=== PATIENT | male | born 1960 | race Caucasian/White ===

== ENCOUNTER 2022-06-10 14:37 | Outpatient (CLI) | payer MEDICARE, BC, SELFPAY ==
--- NOTE | 2022-06-10 15:00 | CRLHL7_ITS ---
For Patients: As a result of the Century Cures Act, medical imaging exams and procedure reports are released immediately into your electronic medical record. You may view this report before your referring provider. If you have questions, please contact your health care provider. INDICATION: POSTERIOR TO KNEE PAIN COMPARISON: None. TECHNIQUE: A compression venous ultrasound exam was performed of the left lower extremity using pedraza-scale imaging, color Doppler and spectral Doppler analysis. FINDINGS: Sonographic imaging of the left lower extremity demonstrates normal compressibility and color Doppler venous blood flow within the common femoral vein, deep femoral vein, and the proximal greater saphenous vein. Within the thigh, the femoral vein is patent and compressible. At a lower level, the popliteal and posterior tibial veins also show normal compressibility and color Doppler venous blood flow. Limited imaging of the contralateral groin demonstrates a normal spectral waveform and color Doppler venous blood flow within the right common femoral vein. IMPRESSION: Normal venous ultrasound exam. No evidence of deep vein thrombosis within the left lower extremity. Dictated by Trav Bah MD @ 06/11/2022 11:21:02 AM (Electronically Signed)
== END 2022-06-10 14:38 | disposition home or self-care (01) ==
PROVIDERS: PCP Family Medicine; Visit Provider Physician Assistant Medical
DX: M79.605 Pain in left leg (principal)
CPT/HCPCS: 93971

== ENCOUNTER 2023-03-22 08:58 | Outpatient (CLI) | payer MEDICARE, BC, SELFPAY | END 2023-03-22 08:59 | disposition home or self-care (01) | PROVIDERS: PCP Family Medicine; Visit Provider Family Medicine | DX: Z12.5 Encounter for screening for malignant neoplasm of prostate (principal); Z13.228 Encounter for screening for other metabolic disorders; Z13.6 Encounter for screening for cardiovascular disorders; E66.9 Obesity, unspecified; R40.0 Somnolence | CPT/HCPCS: 80048; 80061; 84153 ==

== ENCOUNTER 2023-06-08 19:14 | Outpatient (CLI) | payer MEDICARE, BC, SELFPAY ==
--- NOTE | 2023-07-07 13:25 | W.PM.SLEEP ---
Sleep Study Details Details Interpreting Provider: Matias Yan Date of Sleep Study: 06/08/23 Sleep Study Details: STUDY TYPE:? Home unattended ? BMI:? Not recorded ORDERING PROVIDER:? Jesus Manuel INDICATION:? Concerns about sleep apnea ? SLEEP SUMMARY:? 416 minute RESPIRATORY SUMMARY:? AHI 50, supine 91.1, right lateral 14.4, left lateral 38.8 Low oxygen 79 6.6% of study oxygen less than 90% Snoring 39% PERIODIC LIMB MOVEMENTS OF SLEEP:? Not recorded during home study CARDIAC:? Range 59-97, mean 73.2 IMPRESSION:? Severe obstructive sleep apnea with supine position dependency RECOMMENDATION: AutoSet CPAP pressure 4-18 with close follow-up.
== END 2023-06-08 19:15 | disposition home or self-care (01) ==
LOC: SLEEP 19:15
PROVIDERS: PCP Family Medicine; Visit Provider Family Medicine
DX: G47.33 Obstructive sleep apnea (adult) (pediatric) (principal)
CPT/HCPCS: 95806

== ENCOUNTER 2023-11-11 08:25 | Outpatient (CLI) | payer MEDICARE, BC, SELFPAY ==
--- NOTE | 2023-11-11 08:45 | MR_ITS ---
[facility] [address] [facility] [address] Phone:?[phone] Fax:?[phone] Referring Physician Information: Emery Cavazos [address] [facility] [address] Phone:?[phone] Fax:?[phone] Patient:Joyce Jalloh D.O.B:?1960 Sex:?Male Phone:?[phone] [facility] MRN:?[id number] Exam Date:?11/11/2023 EXAM: MRI of the RIGHT SHOULDER, without contrast CLINICAL: Right shoulder injury with history of prior surgery. Evaluate for rotator cuff tear. COMPARISONS: X-rays 11/09/2023. MRI 01/24/2014. TECHNICAL: Multiplanar multisequence MRI of the right shoulder was obtained. SEDATION: None. CONTRAST: None. FINDINGS: Rotator cuff: Supraspinatus/Infraspinatus: Postoperative changes of prior rotator cuff repair surgery. Appearance of the supraspinatus and infraspinatus tendons likely reflects a combination of tendinosis and postoperative changes with high-grade near full-thickness tearing seen to involve the distal supraspinatus and infraspinatus tendons. No evidence of significant tendon retraction at this time. Fatty lesion suggestive of a lipoma is now present along the anterior aspect of the infraspinatus muscle measuring up to 4.1 cm in craniocaudal dimension and 5.8 cm in transverse dimension, new compared to prior exam. No significant fatty atrophy of the muscle bellies. Teres minor: No tendinosis, tear or atrophy. Subscapularis: Appearance of the distal tendon likely reflecting a combination of tendinosis, postoperative changes and partial interstitial tearing. No evidence of full-thickness tendon tear. No significant fatty atrophy of the muscle belly. Bursae: Subacromial-subdeltoid: Mild bursal fluid. Subcoracoid: No significant bursal fluid. Coracoacromial arch: Acromion morphology: Type II. No os acromiale. Acromiohumeral space: Within normal limits. Coracohumeral space: Within normal limits. Biceps tendon, long head: Mild tendinosis of the intra-articular tendon. No significant tendon displacement and no tendon rupture. Glenohumeral joint: Physiologic volume of joint fluid. Articular cartilage: No discrete chondral defects identified. Capsule: No convincing evidence of capsular thickening or injury. Labrum: Mild ill-defined degenerative changes are seen to involve the superior labrum similar to prior exam. Labrum otherwise appears intact as visualized. No perilabral cyst identified. Bones: Postoperative changes of prior rotator cuff repair surgery with associated surgical anchors in place within the proximal humerus. There is some increased bone marrow edema about the surgical anchors. No evidence of fracture. Acromioclavicular joint: Moderate changes of arthrosis, increased compared to prior examination. IMPRESSION: 1. Postoperative changes of prior rotator cuff repair surgery, with some increased bone marrow edema like signal about the surgical anchors within the proximal humerus. There is recurrent high-grade near full-thickness tearing of the distal supraspinatus and infraspinatus tendons. A new lipoma is present along the anterior aspect of the infraspinatus muscle. 2. Appearance of the subscapularis tendon likely reflecting a combination of tendinosis, postoperative changes and partial interstitial tearing. 3. Mild tendinosis of the intra-articular long head biceps tendon. 4. Moderate AC joint arthrosis, increased compared to prior exam. [facility] Electronically signed on 11/11/2023 5:25:00 PM by William Velez D.O.
== END 2023-11-11 08:26 | disposition home or self-care (01) ==
PROVIDERS: PCP Family Medicine; Visit Provider Physician Assistant Surgical
DX: S49.91XA Unspecified injury of right shoulder and upper arm, initial encounter (principal); M75.101 Unspecified rotator cuff tear or rupture of right shoulder, not specified as traumatic; M19.011 Primary osteoarthritis, right shoulder
CPT/HCPCS: 73221

== ENCOUNTER 2024-01-05 13:13 | Outpatient (CLI) | payer MEDICARE, BC, SELFPAY | END 2024-01-05 13:14 | disposition home or self-care (01) | PROVIDERS: PCP Family Medicine; Visit Provider Family Medicine | DX: E78.00 Pure hypercholesterolemia, unspecified (principal); R10.13 Epigastric pain | CPT/HCPCS: 80076; 83690 ==

== ENCOUNTER 2024-01-21 10:36 | Outpatient (CLI) | payer MEDICARE, BC, SELFPAY | END 2024-01-21 10:37 | disposition home or self-care (01) | LOC: LKVREF 10:37 | PROVIDERS: PCP Family Medicine; Visit Provider Family Medicine | DX: Z01.818 Encounter for other preprocedural examination (principal) | CPT/HCPCS: 80048 ==

== ENCOUNTER 2024-01-24 06:54 | Day surgery (SDC) | payer MEDICARE, BC, SELFPAY ==
[2024-01-24] VITALS (15 sets, daily range): BP systolic 93–126; BP diastolic 54–91; PULSE 53–71; RESP 14–19; TEMP 35–36.7; O2SAT 90–99; BMI 33.5
[2024-01-24] MEDS: SODIUM CHLORIDE 0.9 % (FLUSH) 10 ML SYRINGE IVF (07:06)
[2024-01-24] MEDS: LACTATED RINGERS 1000 ML 1,000 ML 100 ML IV (07:06)
[2024-01-24] MEDS: MIDAZOLAM HCL 1 MG/ML inj IVP (08:29)
[2024-01-24] MEDS: fentaNYL 100 MCG/2 ML inj IVP (08:29)
--- NOTE | 2024-01-24 08:36 | SUR.PREOP ---
TIME?OUT:?0828 PT/RN/MDA?VERIFICATION?OF?SURGICAL?SITE Right Shoulder,?PROCEDURE Nerve Block,?AND?CONSENT OBTAINED?PRIOR?TO?INVASIVE?PROCEDURE.
[2024-01-24] MEDS: CEFAZOLIN 2 GM in 0.9 % SODIUM CHLORIDE Mini-bag 100 ML IVPB (08:50)
[2024-01-24] MEDS: EPINEPHrine 1 MG in SODIUM CHLORIDE IRRIG SOLUTION 3,000 ML 9003 MG IRRIGATION ×4 (09:14→10:09)
--- NOTE | 2024-01-24 10:53 | PM.ORPRC ---
Procedure Note Date of procedure: 01/24/24 Procedure: PREOPERATIVE DIAGNOSES: 1. Right shoulder rotator cuff re-tear 2. Right shoulder AC joint arthrosis, primary, moderate-severe 3. Right shoulder labral tearing/fraying 4. Right shoulder loose chondral tissue anterior humeral head 5. Right shoulder low-grade partial-thickness long head of biceps tendon tearing 6. Right shoulder subacromial impingement syndrome. POSTOPERATIVE DIAGNOSES: 1. Right shoulder rotator cuff re-tear 2. Right shoulder AC joint arthrosis, primary, moderate-severe 3. Right shoulder labral tearing/fraying 4. Right shoulder loose chondral tissue anterior humeral head 5. Right shoulder low-grade partial-thickness long head of biceps tendon tearing 6. Right shoulder subacromial impingement syndrome. NAME OF OPERATION: 1. Right shoulder arthroscopic rotator cuff repair (upper border subscapularis re-repair; supraspinatus high-grade partial-thickness re-repair. 2. Right shoulder arthroscopic distal clavicle excision 3. Right shoulder arthroscopic extensive glenohumeral debridement 4. Right shoulder arthroscopic bursectomy, subacromial decompression/partial acromioplasty. SURGEON: Beni Tineo MD SHEET METAL HELPER: Paul Falcon PA-C. Of note, a skilled advertising sales assistant was critical for this case to aide in patient positioning, suture manipulation, arm positioning, instrument positioning, and closure. ANESTHESIA: General plus preoperative supraclavicular block. EBL: 25 mL IMPLANTS: Arthrex 4.75 mm BioComposite SwiveLock suture anchor (x3); Arthrex 2.6 mm knotless FiberTak RC (x2) COMPLICATIONS: None evident INDICATIONS: The patient is a pleasant, 63-year-old male who has experienced right shoulder pain that has been increasing in recent time. Physical exam and imaging were consistent with a rotator cuff tear. Given their findings, as well as the weakness and pain, and inadequate response to nonoperative management, recommendation was made for surgery. FINDINGS: Exam under anesthesia revealed stable shoulder with excellent range of motion. The diagnostic arthroscopy revealed relatively healthy glenoid chondral surfaces. Small chondral flaps of the anterior humeral head that were unstable near the rotator interval. The Subscapularis tendon was torn from its upper border. The previous FiberTape suture was identified and cut and removed. The long head of the biceps tendon was torn low-grade partial-thickness manner on the deep lateral side of the tendon. The superior rotator cuff tendon was found to be torn and high-grade partial-thickness manner through the bursal side of the tissue. The labrum was degeneratively frayed in the anterior and superior aspects. No loose bodies were identified within the pouch or subscapularis recess. PROCEDURE: Following a thorough discussion of risks, benefits, and alternatives, consent was obtained and the right shoulder was marked. The patient was brought to the operating room and placed supine on the operating table. Induction of anesthesia was completed after preoperative supraclavicular block was administered in preop holding. Appropriate time out was performed identifying proper patient, site, and procedure. 2 g IV Ancef was administered within 1 hour of incision preoperatively. The right upper extremity was prepped and draped in the appropriate sterile fashion using ChloraPrep prep. This was after the patient was positioned in the beach chair with their head in neutral alignment and all bony prominences well padded. The shoulder was insufflated with 20mL of normal saline via an 18g spinal needle from a posterior approach. An 11 blade skin incision allowed a blunt trochar to be inserted and diagnostic arthroscopy to be performed with the findings as noted above. An anterior portal was established with an outside in technique. This allowed the probe to be inserted and confirm the diagnostic arthroscopic findings. The shaver was then inserted and allowed debridement of the anterior and superior labrum as well as the anterior superior humeral head articular cartilage at the rotator interval location and the long head of the biceps tendon tissue on the deep lateral side. Following this, the upper border subscapularis was repaired after debriding the lesser tuberosity with the shaver and [place] cautery. Subscapularis was captured in horizontal mattress fashion with a fiber tape suture. The tails were brought to a single anchor in the lesser tuberosity with excellent reapproximation of the subscap tendon and good excursion/tension. Of note, the previous FiberTape suture was removed with a combination of scissors and shaver. Thereafter, the subacromial space was entered. Here, a complete bursectomy and partial acromioplasty/subacromial decompression was performed with a combination of radiofrequency ablator, the shaver, and a 5.5 mm bur. Additionally, distal clavicle excision was performed with the bur. 8 mm of distal clavicle was resected based on the with of our bur. Further inspection of the supraspinatus and infraspinatus rotator cuff was performed. This identified the tear as noted above. The margins of the tear were debrided, and the greater tuberosity was debrided with a combination of the apollo cautery, shaver, and bur on reverse setting. After gentle decortication, a speed bridge configuration with a medial sommer was planned. 2 medial anchors were placed and the sutures were passed through the rotator cuff with a fiber link (2.6 mm knotless FiberTak RC). The knotless suture tails were then retrieved, crossed, and cinched down for the medial sommer purpose. A tail from each of the medial row anchor FiberTapes were then retrieved and brought to a lateral row anchor. Excellent reapproximation of the tissue to the greater tuberosity was achieved with broad footprint compression. A small dog ear in the posterior aspect was repaired with the eyelet sutures from the posterolateral anchor. The rotator cuff showed excellent reapproximation of the greater tuberosity with good security upon probing. Prior to anchor rail car driver removal, the eyelet sutures were tugged on for each anchor and found that the anchor had excellent stability within the bone. The shoulder was placed through range of motion and found to be stable. The rotator cuff was re-probed and found to be stable. Instruments were removed. Excess fluid was drained, closure performed with 4-0 Monocryl and Steri-Strips. Dressings were applied. Sling was applied. The patient was awoken from anesthesia and transferred to the PACU in stable condition. A skilled advertising sales assistant was critical for this case to aid in patient positioning, limb positioning, skill to manipulate arthroscopic instruments and camera, suture management, patient safety, and closure. PLAN: 1. Elbow, forearm, wrist and digit range of motion as tolerated. 2. Encouraged ice. 3. Oxycodone for pain as needed. 4. Sling at all times except for ROM and showering. 5. Follow up with PA visit in 1-2 weeks for wound check. Initiate physical therapy following that visit for passive range of motion. Initiate active assisted range of motion at 5-6 weeks. May do pendulums now.
--- NOTE | 2024-01-24 11:11 | W.ANESCHARGE ---
Anesthesia Charges Start Date/Time Anesthesia Start Date: 01/24/24 Anesthesia Start Time: 08:39 Stop Date/Time Anesthesia Stop Date: 01/24/24 Anesthesia Stop Time: 11:08
--- NOTE | 2024-01-24 11:34 | SUR.PHASEI ---
patient requested bare hugger to be turned off
--- NOTE | 2024-01-24 11:51 | P.NB_ITS ---
Nerve Block Nerve Block Time Seen by Provider: 08:30 Date Seen: 01/24/24 Type of block requested by surgeon for post-operative analgesia: supraclavicular Side: right Time out performed: Yes Verification of patient name: Yes Verification of date of : Yes Site marking: site marked Name of person performing procedure: Manjeet Continuous monitoring Was continuous monitoring of O2 sat, B/P, employment instructional associate, recorded every 15 minutes?: Yes Procedure Checklist: sterile prep, needles and gloves Ultrasound guided. Images saved: Yes Medications given in 5ml increments after negative aspiration: Ropivicaine %: 0.5 mL: 20 Needle gauge: 22 Decadron (mg): 10 Precedex (mcg): 25 Patient tolerated procedure well: Yes Block Charges Block Charge (with Pro Fee): Brachial Plexus Use of Ultrasound Machine for Block: Yes- US Guidance/pain block
--- NOTE | 2024-01-24 11:51 | W.ANESCHARGE ---
Anesthesia Charges Start Date/Time Anesthesia Start Date: 01/24/24 Anesthesia Start Time: 08:39 Stop Date/Time Anesthesia Stop Date: 01/24/24 Anesthesia Stop Time: 11:08
== END 2024-01-24 12:54 | disposition home or self-care (01) ==
PROVIDERS: PCP Family Medicine; Visit Provider Orthopaedic Surgery Sports Medicine
PROC: (CPT 29805; principal; 2024-01-24 08:45)
DX: M75.101 Unspecified rotator cuff tear or rupture of right shoulder, not specified as traumatic (principal); M19.011 Primary osteoarthritis, right shoulder; S43.431A Superior glenoid labrum lesion of right shoulder, initial encounter; M75.41 Impingement syndrome of right shoulder; S46.111A Strain of muscle, fascia and tendon of long head of biceps, right arm, initial encounter; G89.18 Other acute postprocedural pain
CPT/HCPCS: 29827; 29826; 29824; 29823; 01630; 64415; 76942; C1713; J0171; J0330; J0690; J1100; J2250; J2405; J2704; J2795; J3010; J7120; L3670

== ENCOUNTER 2024-08-02 08:30 | Outpatient (CLI) | payer MEDICARE, BC, SELFPAY | END 2024-08-02 08:31 | disposition home or self-care (01) | PROVIDERS: PCP Family Medicine; Visit Provider Family Medicine | DX: N32.0 Bladder-neck obstruction (principal); Z12.5 Encounter for screening for malignant neoplasm of prostate; Z13.228 Encounter for screening for other metabolic disorders | CPT/HCPCS: 80048; G0103 ==

== ENCOUNTER 2024-08-03 07:00 | Outpatient (CLI) | payer MEDICARE, BC, SELFPAY | END 2024-08-03 07:01 | disposition home or self-care (01) | LOC: NFLDREF 08-07 17:58 | PROVIDERS: PCP Family Medicine; Referring Provider Family Medicine; Visit Provider Family Medicine | DX: K29.70 Gastritis, unspecified, without bleeding (principal); Z98.890 Other specified postprocedural states | CPT/HCPCS: 87338 ==

== ENCOUNTER 2024-08-03 08:15 | Outpatient (RCR) | payer MEDICARE, BC, SELFPAY ==
--- NOTE | 2024-02-15 16:58 | PT.OPE ---
[facility] Eval [facility] Out[facility] Eval Start: 02/15/24 12:53 Freq: Status: Active Protocol: Document 02/15/24 12:55 BMS (Rec: 02/15/24 13:07 BMS [id number]) E-signed By Britney Negrete PT Physical Therapy Outpatient Evaluation Insurance Information Recert Due Date 05/14/24 Insurance Name Medicare B Insurance Information/Comments WC denied Provider Fax Number internal Medical Diagnosis POSTOPERATIVE DIAGNOSES: 1. Right shoulder rotator cuff re-tear 2. Right shoulder AC joint arthrosis, primary, moderate- severe 3. Right shoulder labral tearing/fraying 4. Right shoulder loose chondral tissue anterior humeral head 5. Right shoulder low-grade partial-thickness long head of biceps tendon tearing 6. Right shoulder subacromial impingement syndrome. NAME OF OPERATION: 1. Right shoulder arthroscopic rotator cuff repair (upper border subscapularis re-repair; supraspinatus high-grade partial-thickness re-repair. 2. Right shoulder arthroscopic distal clavicle excision 3. Right shoulder arthroscopic extensive glenohumeral debridement 4. Right shoulder arthroscopic bursectomy, subacromial decompression/ partial acromioplasty. Treating Diagnosis right shoulder pain M25.511 weakness R arm R53.1 Referring MD Beni Tineo Subjective Subjective 11-03-23 [place] [employer] [place], then was spending time up there with brother and his , who has stage IV cancer. My arm felt tight, then about 3AM woke up with sudden sharp pain like an icepick in shoulder and arm. Pain was terrible. but is probably her last trip up there so I toughed it out then went to [facility] when we got back. He thought it was from my neck. Did imaging, saw it was non- union at C5-6 and he was surprised. Ended up doing MRI and found out it re-tore. Insurance says it is not work comp relatedH, though if I hadnt been injured before I would not have had a re-tear. I can't fight that velez again. Before this I had been out walking every day, using metal detector and doing normal stuff around the house. even was able to take care of 2.5 yo grandson. Never got the sensation back in my L arm /hand hand still numb. in fact cut an artery in my wrist bc was cutting up a deer and L hand holding the meet slipped, knife got me in the L wrist and hit artery. Went to [facility] where they put in 3 superficial stitches, ended up having to go to [place] to have surgery on that bc kept leaking into the tissue. That did heal. Right now pain in arm is 5-6/10. Am only using ice right now for pain, was taking oxy then caught myself reaching for something even though in the sling so stopped taking that, used advil for a few days now on nothing Current Work Status Retired Occupation disability from accident at work - tractor rolled over on him on incline while mowing. Precautions Treatment Precautions/Contraindications - s/p R arthroscopic RCR (re- repair) x 5 anchor upper border subscap, supraspinatus. SAD, DCE, extensive debridement 01/24/24. 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 IR painful Strength not assessed due to recent surgery Palpation tenderness throughout R arm, shoulder complex. tightness in forearm, decreased muscle tone at bicep/tricep areas Balance & Gait torso rotation and arm swing on R limited by sling Posture R UE held close to body, wearing sling. head forward Sensation/Reflexes pinprick - dull L forearm and thumb, and R hypothenar eminence compared to contralateral Other/Pertinent Objective hand pink and warm with good capillary refill. tightness appropriate for someone following this surgery. Arthroscopic incisions clean and dry beneath glue. atrophy of biceps is pronounced Assessment Assessment/Impression Patient is 63 yo male referred s/p R RCR (after a re-tear on a previously repaired site). He is well known to this therapis through these prior episodes of care. 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 He suffered multiple injuries including B RCR and ended up having 2 level fusion. 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 He has residual numbness in L thumb and hand and weakness, that resulted in another injury. While cutting up a deer the meat held in L hand slipped and knife somehow punctured artery on L wrist, requiring surgical repair. Because of the settlement of lengthy work comp claim he is declared on disability but had been able to do things around the house. He had resumed walking, biking, metal detecting and caring for grandchild. He had been weed whipping at their cabin in November 2023 when he felt restrictions in R shoulder and arm. That night he woke 3AM in severe pain, felt like ice pick in his shoulder. He toughed out the weekend as his MARISEL who has stage IV cancer and her (patient's brother) were there for probably their last weekend. When returned to our area went to [place] who believed it to be related to his neck. They did imaging and discovered a re-tear of R RCR . On 01/24/24 he underwent surgery for R RCR repair, 5 anchor upper border subscap, supraspinatus. SAD, DCE, extensive debridement 01/24/24. Per note w PA in EMR - PROM until 5-6 weeks post op then AAROM week 5=02/28/24. Patient is in sling until next week, has been doing gentle wrist and hand ROM and pendulums. Presents with large deficit of ROM in R shoulder, elbow. pain with all movement, inability to use R UE ( previously the 'good' shoulder '). Patient is appropriate for skilled physical therapy to regain shoulder, neck and elbow ROM, decrease pain, and begin progressive strengthening as protocol and healing allow. Plan of Care Rehabilitation Potential Good Rehabilitation Potential Comments patient has had B RCR and a 2 level cervical fusion where bone graft did not take ( remains nonunion at C5-6. Has residual weakness and paresthesias in L UE after radiculopathy and following his work comp injury. Patient is very compliant w home program in past but due to hx of difficult recoveries with past surgeries will benefit from course of skilled physical therapy Physical Therapy Goals 1) Pt demo independence with HEP and self care/home management techniques for shoulder/elbow pain, increased ROM and strength for return to previous level of function. 2) Pt report pain <= 2/10 with reaching into cupboard without substitution. 1)Pt demo ability to don/doff clothes including shirts and coats without increased pain. 2) Pt demonstrate ability to lift 10# without contortion or substitution patterns of UE or trunk for carrying gallon of milk etc. 3) Pt demo ROM WNL combined flex, abduct and ER to perform grooming and hair brushing. 4) Pt report ability to sleep without waking from pain >2 nights per week in preferred position using appropriate positioning. timeline for goal acquistion will depend on patient healing and surgical protocol Coordination/Communication With Referral Source Treatment Plan/Direct Interventions Heat,Ice/Cold/Vasopneumatic, Manual Therapy,Neuromuscular Re-ed,Self-Care/Home Management,Therapeutic Activities,Therapeutic Exercises Frequency/Duration 1-2x/ week x 12-20 weeks pending progress. Patient Will Be Discharged From Therapy Completion of LTG(s),Skills Plateau,Independent w/HEP, Independently Progressing Evaluation Billing Untimed Code Treatment Minutes 40 Complexity Moderate Certification Information Initial Certification Date 02/15/24 Ending Certification Date 05/14/24 Provider Signature Required Yes Provider Signature Shows Agreement With POC & Medical Necessity Physician NPI Number Write NPI# Here Physician Comment/Change : Physician Signature & Date Requested Please Sign/Date Here
--- NOTE | 2024-03-07 14:44 | PT.OPDN ---
PT [facility] Outpatient Daily Note PT [facility] Outpatient Daily Note Start: 02/15/24 12:53 Freq: Status: Active Protocol: Document 03/07/24 12:02 SARAHI (Rec: 03/07/24 12:05 BMS [id number]) E-signed By Britney Negrete, PT PT OP Daily Progress Note Visit Information Note Type Daily Note,Recert/Progress Note Visit Number [id number] Insurance Information Recert Due Date 05/14/24 Insurance Name Medicare B Insurance Information/Comments WC denied Medical Diagnosis POSTOPERATIVE DIAGNOSES: 1. Right shoulder rotator cuff re-tear 2. Right shoulder AC joint arthrosis, primary, moderate- severe 3. Right shoulder labral tearing/fraying 4. Right shoulder loose chondral tissue anterior humeral head 5. Right shoulder low-grade partial-thickness long head of biceps tendon tearing 6. Right shoulder subacromial impingement syndrome. NAME OF OPERATION: 1. Right shoulder arthroscopic rotator cuff repair (upper border subscapularis re-repair; supraspinatus high-grade partial-thickness re-repair. 2. Right shoulder arthroscopic distal clavicle excision 3. Right shoulder arthroscopic extensive glenohumeral debridement 4. Right shoulder arthroscopic bursectomy, subacromial decompression/ partial acromioplasty. Treating Diagnosis right shoulder pain M25.511 weakness R arm R53.1 Referring MD Beni Tineo Subjective Subjective patient report catching himself doing a wall slide this AM. was really sore after last time but able to manage with ice and TENS. still wearing sling when in situation where he feels he may be tempted to move it. 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 SAD, DCE, extensive debridement 01/24/24. 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 - pulleys x 15 flex, scaption - table slides forearms on roller flex x 10 palm down, repeat thumbs up. scaption x 10 AAROM on foam roller x 10, abduction x 10 - wand flexion in supine x 10 B - wand abduction x 10 - shoulder circles x 10 B Manual Therapy Techniques Manual Therapy Minutes (minutes) 15 Manual Therapy Techniques STM MFR to entire R shoulder complex decongestive in supine followed by KT tape decompression over area of most tenderness/pain distal to clavicle Treatment Minutes Timed Code Treatment Minutes 45 Total Treatment Time 45 Billing Units Manual Therapy Units 1 Therapeutic Exercise Units 2 Assessment/Impression Assessment/Impression patient demo improved tolerance but with definite firm end feel. pec tightness present but better than past session, under axilla also improving allowing improved scapular mobility. He is no longer taking tylenol bc he is worried he will try to use arm if he does. We initiated AAROM last week and did become quite sore. Is ready to initiate this as part of HEP this date. Working on mobility in combined planes as well as with forearm in neutral, pronation and supination. He is appropriate to continue with skilled physical therapy, advancing to AROM and eventually strengthening per protocol guidelines. Patient follows up with surgeon tomorrow. Plan of Care Physical Therapy Goals 1) Pt demo independence with HEP and self care/home management techniques for shoulder/elbow pain, increased ROM and strength for return to previous level of function. 2) Pt report pain <= 2/10 with reaching into cupboard without substitution. 1)Pt demo ability to don/doff clothes including shirts and coats without increased pain. 2) Pt demonstrate ability to lift 10# without contortion or substitution patterns of UE or trunk for carrying gallon of milk etc. 3) Pt demo ROM WNL combined flex, abduct and ER to perform grooming and hair brushing. 4) Pt report ability to sleep without waking from pain >2 nights per week in preferred position using appropriate positioning. timeline for goal acquistion will depend on patient healing and surgical protocol Daily Plan of Care Continue per POC
--- NOTE | 2024-05-31 07:52 | PT.OPDN ---
PT [facility] Out[facility] Daily Note PT [facility] Outpatient Daily Note Start: 02/15/24 12:53 Freq: Status: Active Protocol: Document 05/30/24 19:07 BMS (Rec: 05/30/24 19:08 BMS [id number]) E-signed By Britney Negrete, PT PT OP Daily Progress Note Visit Information Note Type Daily Note,Recert/Progress Note Visit Number [id number] Insurance Authorized Visits [facility] Home Exercise Home Exercise Comments added green band ER, IR, extensions lower counter pushup, to eccentric modified knee push up on floor lifting 1-5# overhead Objective Other/Pertinent Objective flex 180, abduct 180 ER 60, IR T8 Patient Instructed in Risks/Benefits Yes Therapeutic Exercise Therapeutic Exercise Minutes (minutes) 30 Therapeutic Exercise: To Restore - UBE 6 min resist 4.5 alt fwd Functional Status bkwd -green band x 15, ER and IR x15, adduct x10 - pec mobility with pin and stretch, active release and self stretches - incline pushups at low counter/plinth x 10 - tricep dip from bars x 10 - prone shoulder ext 1# each hand x 12, W no wt x 12 - foam roller stretches to pec with 1# overhead flex x10, no weight floor angels x 10 1# overhead press x 12, lifting to shelf x 10 Manual Therapy Techniques Manual Therapy Minutes (minutes) 10 Manual Therapy Techniques STM MFR to entire R shoulder complex, abhishek scap, pec and axillary region. subscap and lat clearing bicep pin and stretch Treatment Minutes Timed Code Treatment Minutes 40 Total Treatment Time 40 Billing Units Manual Therapy Units 1 Therapeutic Exercise Units 2 Assessment/Impression Assessment/Impression patient continues to advance with mobility and strength, able to add more resistance to today's exercises. patient has been able to add resistance to his aquatic exercises as well but is still advancing tasks lifting with proper mechanics to reduce risk of reinjury to shoulder already repaired x2 Plan of Care Physical Therapy Goals MET 1) Pt demo independence with HEP and self care/home management techniques for shoulder/elbow pain, increased ROM and strength for return to previous level of function. MET 2) Pt report pain <= 2/10 with reaching into cupboard without substitution. MET 1)Pt demo ability to don/ doff clothes including shirts and coats without increased pain. 2) Pt demonstrate ability to lift 10# without contortion or substitution patterns of UE or trunk for carrying gallon of milk etc. 3) Pt demo ROM WNL combined flex, abduct and ER to perform grooming and hair brushing. MET 4) Pt report ability to sleep without waking from pain >2 nights per week in preferred position using appropriate positioning. 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
== END 2024-12-01 23:59 | disposition home or self-care (01) ==
PROVIDERS: PCP Family Medicine; Visit Provider Orthopaedic Surgery Sports Medicine
DX: Z48.89 Encounter for other specified surgical aftercare (principal); M25.511 Pain in right shoulder; Z51.89 Encounter for other specified aftercare
CPT/HCPCS: 87338; 97032; 97110; 97140; 97162

== ENCOUNTER 2025-04-16 12:26 | Emergency (ER) | payer MEDICARE, BC, SELFPAY ==
[2025-04-16 12:51] VITALS: BP 133/79; PULSE 63; RESP 12; TEMP 36.6; O2SAT 97; BMI 33.6
[2025-04-16 13:10] VITALS: PULSE 55; O2SAT 97
--- NOTE | 2025-04-16 13:10 | CRLHL7_ITS ---
For Patients: As a result of the Cures Act, medical imaging exams and procedure reports are released immediately into your electronic medical record. You may view this report before your referring provider. If you have questions, please contact your health care provider. INDICATION: Cough, left thoracic back pain COMPARISON: None. TECHNIQUE: PA and lateral 2 view chest. FINDINGS: Lung volumes are good. No focal or diffuse opacities. No pulmonary edema. No pleural effusion. No pneumothorax. No pneumomediastinum. Normal cardiomediastinal silhouette. Bones: Cervicothoracic ACDF. No acute appearing bone findings. IMPRESSION: Lungs clear. No acute findings. Dictated by Yue Torres MD @ 04/16/2025 2:07:12 PM (Electronically Signed)
[2025-04-16 13:15] VITALS: PULSE 60; RESP 18; O2SAT 95
--- NOTE | 2025-04-16 13:19 | ED_ITS ---
HPI - General Adult General Date Seen: 04/16/25 Chief complaint: Shortness of Breath/Dyspnea Stated complaint: SOB and pain on LT side of back Time Seen by Provider: 04/16/25 12:58 History of Present Illness HPI narrative: Patient is a 64 year old male with onset of L flank/lower thoracic pain that started at around 3 AM and woke him from sleep. He notes a mild cough and shortness of breath as well. No urinary symptoms. No fevers or chills, no chest pain. no history of similar pain. No recent leg swelling, he has had some sciatic symptoms in his right leg for a couple of months but nothing different about that. No history of blood clots in the legs or lungs. Not smoke. Related Data Home Medications ?Medication ?Instructions ?Recorded ?Confirmed cetirizine 10 mg tablet (Zyrtec) 10 mg PO QDAY 4 04/16/25 Allergies Allergy/AdvReac Type Severity Reaction Status Date / Time No Known Drug Allergies Allergy Verified 08/03/24 12:50 Review of Systems Status of ROS: Reports: 10 or more systems reviewed and unremarkable except as noted in History and below [facility] Medical History Shingles ?B02.9 - Zoster without complications (ICD-10) Rash ?R21 - Rash and other nonspecific skin eruption (ICD-10) COVID-19 ?U07.1 - COVID-19 (ICD-10) Biceps tendinosis of right shoulder ?M67.813 - Other specified disorders of tendon, right shoulder (ICD-10) Basal cell carcinoma ?C44.91 - Basal cell carcinoma of skin, unspecified (ICD-10) Surgical History Status post right rotator cuff repair (01/24/24) ?Z98.890 - Other specified postprocedural states (ICD-10) History of arthroscopy of right shoulder (03/08/14) ?Z98.890 - Other specified postprocedural states (ICD-10) History of arthroscopy of left shoulder (10/11/14) ?Z98.890 - Other specified postprocedural states (ICD-10) Fusion of spine, cervical region ?M43.22 - Fusion of spine, cervical region (ICD-10) Family History Family/Other Stroke Colon cancer Brother Skin cancer Social History Narrative: former smoker What is your current living situation?: I presently have a place to live Problems where you live: no known problems In the past 12 months, utilities in danger of being shut off: no In past 12 months, lack of transportation kept you from medical appts, meetings, work, or getting things needed for daily living: no In the past 12 mos, have been you worried that your food would run out before you had money to buy more?: never true In the past 12 mos, the food you bought just didn't last and you didn't have money to buy more?: never true Smoking Status: Former smoker What tobacco products do you use: cigarettes Smoking quit date/years: >15 years ago Do you use any of these nicotine containing products: None Second hand tobacco smoke exposure: No How often do you have a drink containing alcohol: monthly or less How many standard drinks containing alcohol do you have on a typical day: 1 or 2 AUDIT-C Alcohol total score: 1 Non-prescribed substance use: denies use Caffeine: No How often does anyone, including family, friends and others, physically hurt you : never How often does anyone, including family, friends and others, insult or talk down to you: never How often does anyone, including family, friends and others, threaten you with harm: never How often does anyone, including family, friends and others, scream or curse at you: never Exam Narrative: Exam Narrative: Vital signs reviewed In general, an alert, nontoxic Head: Normocephalic, atraumatic. Eyes: Sclera clear. Pupils equal and reactive. ENT: Mucous membranes moist. Neck: Supple without adenopathy. Heart: Regular rate and rhythm without murmur. Lungs: Clear. No increased work of breathing, crackles or wheezes. He does have some reproducible tenderness of the thoracic back on the left. No crepitus or subcu air, no bruising or swelling. Abdomen: Soft, nontender to palpation. Extremities: Well perfused, pulses intact. No significant edema. Neurologic: Alert, conversant. Speech fluent, face symmetric. Moves all extremities equally. Skin: Warm, dry well perfused. Affect: Normal. Const: Vital Signs, click to edit/add: Vital Signs - 24 hr 04/16/25 12:51 04/16/25 13:10 04/16/25 13:15 Temperature 97.8 F Pulse Rate 55 L 60 Pulse Rate [Pulse Oximeter] 63 Respiratory Rate 12 18 Blood Pressure Blood Pressure [Ri ght Upper Arm] 133/79 Pulse Oximetry 97 97 95 Oxygen Delivery Me thod Room Air 04/16/25 13:32 04/16/25 13:41 04/16/25 15:07 Temperature Pulse Rate 56 L 51 L 53 L Pulse Rate [Pulse Oximeter] Respiratory Rate 19 16 Blood Pressure 117/83 119/80 Blood Pressure [Ri ght Upper Arm] Pulse Oximetry 97 96 99 Oxygen Delivery Me thod Room Air Room Air Course Course ED Course: Patient presents with some posterior left thoracic pain, diagnostic considerations would include pneumothorax, pneumonia, pulmonary embolism, chest wall pain, kidney stone, pyelonephritis, acute coronary syndrome,among others. Patient declined anything for pain here. We stab list an IV, he had an x-ray of his chest which was negative by my review, negative per radiology read. Labs were unrevealing, his white blood cell count is 7.6, normal hemoglobin, D-dimer 0.31, high sensitivity troponin of 3.2, CRP less than 0.5, metabolic panel is normal. UA was negative, no blood or white cells. Discussed with him that at this time the etiology for this is a little unclear. Kidney stone seems somewhat unlikely given the location and nature of his pain but discussed this could be evaluated for with CT scan of the abdomen which would also just let us make sure that there is not a subtle pneumonia in the lung base. He says he would rather just give it a couple of days and see how he feels. I think given the benign nature of his exam, normal vital signs and labs that is reasonable. Recommend a trial of nonsteroidals on a scheduled basis for couple of days. we discussed reasons to return such as worsening shortness of breath,- fevers, severe uncontrolled pain, hematuria. Otherwise, primary care follow-up if pain persists. Vital Signs Vital signs: Initial Vital Signs Temperature 97.8 F 04/16/25 12:51 Temperature Source Temporal Artery Scan 04/16/25 12:51 Pulse Rate 63 04/16/25 12:51 Respiratory Rate 12 04/16/25 12:51 Blood Pressure 133/79 04/16/25 12:51 Blood Pressure Mean 97 04/16/25 12:51 Blood Pressure Position Sitting 04/16/25 12:51 Pulse Oximetry 97 04/16/25 12:51 Oxygen Delivery Method Room Air 04/16/25 12:51 Vital Signs Temperature 97.8 F 04/16/25 12:51 Pulse Rate 63 04/16/25 12:51 Respiratory Rate 12 04/16/25 12:51 Blood Pressure 133/79 04/16/25 12:51 Pulse Oximetry 97 04/16/25 12:51 Oxygen Delivery Method Room Air 04/16/25 12:51 Temperature 97.8 F 04/16/25 12:51 Pulse Rate 53 L 04/16/25 15:07 Respiratory Rate 16 04/16/25 15:07 Blood Pressure 119/80 04/16/25 15:07 Pulse Oximetry 99 04/16/25 15:07 Oxygen Delivery Method Room Air 04/16/25 15:07 Medical Decision Making Lab Data Labs: Lab Results 04/16/25 04/16/25 04/16/25 Range/Units 13:11 13:20 13:30 WBC 7.63 (4.50-11.00) K/uL RBC 5.30 (4.30-5.90) m/uL Hgb 15.8 (13.5-17.5) gm/dL Hct 48.6 (37.0-53.0) % MCV 92 (80-100) fL MCH 30 (26-34) pg MCHC 33 (32-36) gm/dL RDW Coeff of Carlos 12.7 (11.5-15.5) % Plt Count 269 (140-440) K/uL Neut % (Auto) 66.8 (42.0-72.0) % Lymph % (Auto) 22.1 (20-44) % [place] % (Auto) 9.6 (0.0-11.0) % Eos % (Auto) 0.9 (0.0-7.0) % Baso % (Auto) 0.3 (0.0-3.0) % Neut # (Auto) 5.10 (1.7-7.0) K/uL Lymph # (Auto) 1.69 (0.90-2.90) K/uL [place] # (Auto) 0.70 (0.00-0.90) K/UL Eos # (Auto) 0.07 (0.00-0.50) K/uL Baso # (Auto) 0.02 (0.00-0.30) K/uL Abs Immat Gran (auto) 0.02 (0.00-0.30) K/uL Imm/Tot Granulo (auto) 0.3 % D-Dimer Quant (PE/DVT) 0.31 (0.00-0.50) ug/ml Sodium 138 (135-149) mmol/L Potassium 4.9 (3.6-5.1) mmol/L Chloride 106 (96-114) mmol/L Carbon Dioxide 26 (20-32) mmol/L Anion Gap 6 L (7-15) mEq/L BUN 17 (7-30) mg/dL Creatinine 1.0 (0.5-1.5) mg/dL Estimated Creat Clear 81.58 Estimated GFR 85 ml/min Glucose 85 (60-115) mg/dL Calcium 9.1 (8.4-10.6) mg/dL POC Troponin I High Sensi 3.2 (2.9-28.0) pg/mL C-Reactive Protein < 0.5 L (0.5-1.0) mg/dL Urine Color Yellow (Yellow) Urine Appearance Clear (Clear) Urine pH 6.0 (5.0-8.5) Ur Specific Burg[place] <= 1.005 (1.000-1.030) Urine Protein Negative (Negative) Urine Glucose (UA) Negative (Negative) Urine Ketones Negative (Negative) Urine Blood Negative (Negative) Urine Nitrite Negative (Negative) Urine Bilirubin Negative (Negative) Urine Urobilinogen 0.2 (0.2-1.0) Ur Leukocyte Esterase Negative (Negative) Urine RBC 0-2 (0-2) Urine WBC 0-2 (0-5) Ur Squamous Epith Cells None (None-Few) Urine Bacteria None (None) Imaging Data Chest x-ray: Attestation: I have reviewed the pertinent imaging results. Radiologist's impression: Patient: Ha Jalloh MR#: [id number] : 1960 Acct:[id number] Loc: ED Service Date: 04/16/[address]: Ordering Physician: Enriqueta Rodriguez M.D. Date of Service: 04/16/25 Procedure(s): XR chest 2V Accession Number(s): [id number] cc: Enriqueta Rodriguez M.D.; Marin Garg M.D.~ For Patients: As a result of the Cures Act, medical imaging exams and procedure reports are released immediately into your electronic medical record. You may view this report before your referring provider. If you have questions, please contact your health care provider. INDICATION: Cough, left thoracic back pain COMPARISON: None. TECHNIQUE: PA and lateral 2 view chest. FINDINGS: Lung volumes are good. No focal or diffuse opacities. No pulmonary edema. No pleural effusion. No pneumothorax. No pneumomediastinum. Normal cardiomediastinal silhouette. Bones: Cervicothoracic ACDF. No acute appearing bone findings. IMPRESSION: Lungs clear. No acute findings. Dictated by Yue Torres MD @ 04/16/2025 2:07:12 PM Discharge Plan Discharge Clinical Impression: Left-sided thoracic back pain Patient Disposition: Home, Self-Care Instructions: Thoracic Pain (ED) Additional Instructions: Your tests today are normal. Cause of your pain is not clear but it may be related to something the chest wall. For now, would recommend a trial of anti- inflammatories, either ibuprofen or naproxen on a scheduled basis for couple of days. If pain is severe or worsening, if you have new symptoms such as high fevers, significant shortness of breath etcetera return to the ER at any time. Otherwise, follow-up with primary care in the next week if symptoms are not resolving. Prescriptions: No Action cetirizine [Zyrtec] 10 mg tablet 10 mg PO QDAY Follow Up/Referrals: Marin Garg MD [Primary Care Provider, Family Practice] Stand Alone Forms: [facility] Info Instructions
[2025-04-16 13:32] VITALS: PULSE 56; O2SAT 97
[2025-04-16 13:41] VITALS: BP 117/83; PULSE 51; RESP 19; O2SAT 96
[2025-04-16 13:43] LABS: Appearance Urine Clear (Clear)
[2025-04-16 13:48] LABS: Hematocrit* 48.6 % (37.0-53.0); Hemoglobin* 15.8 gm/dL (13.5-17.5); Immature Granulocytes Abs Auto 0.02 K/uL (0.00-0.30); Immature Granulocytes Pct Auto 0.3 %; Lymphocytes Absolute Auto 1.69 K/uL (0.90-2.90); Mean Corpuscular HGB Conc 33 gm/dL (32-36); Mean Corpuscular Hemoglobin 30 pg (26-34); Mean Corpuscular Volume 92 fL (80-100); RDW Coefficient of Variation % 12.7 % (11.5-15.5); Red Blood Count* 5.30 m/uL (4.30-5.90); White Blood Count* 7.63 K/uL (4.50-11.00)
[2025-04-16 13:52] LABS: Chloride* 106 mmol/L (96-114); Sodium* 138 mmol/L (135-149)
[2025-04-16 13:53] LABS: Potassium* 4.9 mmol/L (3.6-5.1)
[2025-04-16 13:54] LABS: Slide Review Reflex No
[2025-04-16 13:55] LABS: Blood Urea Nitrogen* 17 mg/dL (7-30); Creatinine* 1.0 mg/dL (0.5-1.5); Est. Creatinine Clearance* 81.58; Estimated Glomerular Filt Rate 85 ml/min
[2025-04-16 13:56] LABS: Anion Gap 6 mEq/L (7-15); Calcium* 9.1 mg/dL (8.4-10.6); Carbon Dioxide* 26 mmol/L (20-32); Glucose* 85 mg/dL (60-115)
[2025-04-16 14:19] LABS: D Dimer Quantitative* 0.31 ug/ml (0.00-0.50)
--- OUTSIDE RECORDS SUMMARY | 2025-04-16 14:39 | XMS_ITS | Clinical Summary ---
Author Organization [facility] Address [address] [place] [id number] Care Team Providers Care Quarter Section Ironer Name Role Phone Brian Moreno MD Primary Care Provider [phone] Allergies Active AllergyReactionsCriticalityNoted DateCommentsAmoxicillin-Pot Clavulanate Aqmwcasv94/21/2014 Medications MedicationSigDispense QuantityRefillsLast FilledStart DateEnd DateStatus nabumetone (RELAFEN) 500 mg tablet Take 1 tablet by mouth 2 times daily with meals.ctive phenytoin extended (DILANTIN) 100 mg ER capsule Three tablets kgneq77005/23/2013ctive Immunizations ImmunizationAdministration DatesNext BbvQptc20/13/2020 Social History Tobacco UseTypesPacks/DayYears UsedDateSmoking Tobacco: Never Tobacco Cessation:Counseling Given: Yes Alcohol UseStandard Drinks/WeekCommentsNot Asked0 (1 standard drink = 0.6 oz pure alcohol)Sex and Gender InformationValueDate RecordedSex Assigned at Not on fileLegal MesGywv5005/16/2012 6:12 AM CSTGender IdentityNot on fileSexual OrientationNot on file Last Filed Vital Signs Vital SignReadingTime TakenCommentsBlood Kxnwomnt561/8203/15/2020 7:15 PM SONOGRAPHY TECHNICIAN Arhhv758703/15/2020 7:15 PM IJWFghkwstvmws20.6 ??C (97.8 ??F)03/15/2020 1:23 PM CSTRespiratory Eysx002305/15/2019 1:23 PM CSTOxygen Zzlcuwzokz85%03/15/2020 7:15 PM CSTInhaled Oxygen Concentration--Frvyef658.4 kg (250 lb 1.6 oz)03/15/2020 1:23 PM XHYIendlx272.3 cm (5' 11)03/15/2020 1:23 PM CSTBody Mass Index34.88 03/15/2020 1:23 PM SONOGRAPHY TECHNICIAN Plan of Treatment Health MaintenanceDue DateLast DoneCommentsDepression screening for age 12+ 1974HIV for age 15-BMI (ht and wt on same day) for age 18+ 1980Hepatitis C screening for age 18-7907/25/1980Colonoscopy through age Lipids for age 45-Pneumococcal series for age 50+ (1 of 1 - PCV)2012Zoster (shingles) series for age 50+ (1 of 2)2012COVID- 19 vaccine series (1 - 2024- season)2025Influenza Vaccine (#1)2025 Tetanus ooutfhy73RSV vaccine for adults or (1 - 1- dose 75+ series)2037Hepatitis B series for 19+Aged OutNo longer eligible based on patient's age to complete this topic Insurance * Guarantor: Ha Jalloh TypeRelation to PatientDate of BirthPhone Billing AddressPersonal/NsldxiPbzt08/25/1961 [address] [address] Care Teams Team MemberRelationshipSpecialtyStart DateEnd Date Brian Moreno MD [address] [place] [id number] PCP - GeneralFamily Goygzxtl53/21/14
--- OUTSIDE RECORDS SUMMARY | 2025-04-16 14:39 | XMS_ITS | Clinical Summary ---
Author Organization [facility] Address [facility] [place] [address] Care Team Providers Care Bag Patcher Name Role Phone Brian Moreno Primary Care Provider Allergies Active AllergyReactionsCriticalityNoted DateCommentsAmoxicillin-Pot Clavulanate Byzoabma91/11/2013Clavulanic Acid04/12/20137584Uslwvuf36/11/2013 Medications MedicationSigDispense QuantityRefillsLast FilledStart DateEnd DateStatus Phenytoin (DILANTIN PO) Take 200 mg by mouth 2 times dailyActive NABUMETONE PO Take 500 mg by mouth 2 times dailyActive TEMAZEPAM PO Take 7.5 mg by mouth nightly as neededActive oxyCODONE-acetaminophen (PERCOCET) 5-325 MG per tablet Take 1-2 tablets by mouth every 4 hours as neededActive Ondansetron (ZOFRAN ODT PO) Place 4 mg under the tongue every 6 hours as neededActive HYDROcodone-acetaminophen (NORCO) 10-325 MG per tablet Indications:HydroceleTake 1-2 tablets by mouth every 4 hours as needed for pain (Moderate to Severe Pain) 30 tablet ctive cephALEXin (KEFLEX) 500 MG capsule Indications:HydroceleTake 1 capsule (500 mg) by mouth 2 times daily 20 capsule ctive albuterol (PROAIR HFA/PROVENTIL HFA/VENTOLIN HFA) 108 (90 Base) MCG/ACT inhaler Inhale 2 puffs into the lungs every 4 hours as needed for shortness of breath / dyspnea 6.7 g 10/31/2020ctive Active Problems No known active problems Social History Tobacco UseTypesPacks/DayYears UsedDateSmoking Tobacco: FormerAlcohol Use Standard Drinks/WeekCommentsYes0 (1 standard drink = 0.6 oz pure alcohol) Adolescent EducationAnswerDate RecordedGetting School Help NeededNot on file 02/06/2023Sex and Gender InformationValueDate RecordedSex Assigned at BirthNot on fileLegal KwnXkfn76/04/2012 2:58 AM CSTGender IdentityNot on fileSexual OrientationNot on file Last Filed Vital Signs Vital SignReadingTime TakenCommentsBlood Kxzkirds685/78010/31/2020 1:30 PM CDT Svfqb9683/01/2021 2:30 PM HGUKcdifkncegy63.4 ??C (97.6 ??F)10/31/2020 11:20 AM CDTRespiratory Iujc424810/31/2020 2:30 PM CDTOxygen Uqcvposesk49%10/31/2020 2:30 PM CDTInhaled Oxygen Concentration--Vislbd431.7 kg (244 lb)10/31/2020 11:20 AM NSDXidagz750.3 cm (5' 11)04/13/2013 7:17 AM CSTBody Mass Index34.03106/14/2012 7:17 AM SKETCH ARTIST Plan of Treatment Not on file Insurance Care Teams Team MemberRelationshipSpecialtyStart DateEnd Date Brian Moreno [address] [address] PCP - GeneralFamily Jrsvfgwh81/12/13
[2025-04-16 15:07] VITALS: BP 119/80; PULSE 53; RESP 16; O2SAT 99
== END 2025-04-16 15:14 | disposition home or self-care (01) ==
PROVIDERS: Emergency Provider Emergency Medicine; PCP Family Medicine
DX: M54.6 Pain in thoracic spine (principal)
CPT/HCPCS: 36415; 71046; 80048; 81001; 84484; 85025; 85379; 86140; 99283